=== PATIENT | female | born 1960 | race Caucasian/White ===

== ENCOUNTER 2018-12-13 10:19 | Emergency (ER) | payer MEDICAID ==
[~2018-12-13] VITALS: Ht 167.6 cm; Wt 68.2 kg
[2018-12-13] VITALS (7 sets, daily range): BP systolic 123–135; BP diastolic 63–81
[2018-12-13 10:48] LABS: BASOPHILS # (AUTO) 0.2 X10'3 (0-0.2); BASOPHILS % (AUTO) 0.9 % (0-1); EOSINOPHILS % (AUTO) 0 % (0-6); HEMATOCRIT 43.3 % (35.0-45.0); HEMOGLOBIN 14.7 g/dl (12.0-16.0); LYMPHOCYTES # (AUTO) 1.7 X10'3 (1.1-4.8); LYMPHOCYTES % (AUTO) 9.2 % (21-51); MEAN CORPUSCULAR HEMOGLOBIN 30.4 PG (27.0-31.0); MEAN CORPUSCULAR VOLUME 89.3 FL (78-98); MEAN PLATELET VOLUME 6.4 FL (7.4-10.4); MONOCYTES # (AUTO) 1.2 X10'3 (0-0.9); MONOCYTES % (AUTO) 6.6 % (2-12); NEUTROPHILS # (AUTO) 15.3 X10'3 (1.8-7.7); NEUTROPHILS % (AUTO) 83.3 % (42-75); PLATELET COUNT 351 X10'3 (140-440); RED BLOOD COUNT 4.85 X10'6 (4.20-5.60); RED CELL DISTRIBUTION WIDTH 14.1 % (11.5-14.5); WHITE BLOOD COUNT 18.4 X10'3 (4.5-11.0)
[2018-12-13 10:50] LABS: URINE HCG NEGATIVE (NEG)
[2018-12-13 10:51] LABS: CLARITY,URINE SLIGHTLY CLOUDY (Clear); COLOR,URINE YELLOW (Yellow); GLUCOSE, URINE NEGATIVE (Neg); KETONES,URINE >=80 mg/dl (Neg); LEUKOCYTE ESTERASE ,URINE NEGATIVE (Neg); NITRITES, URINE NEGATIVE (Neg); OCCULT BLOOD,URINE LARGE (Neg); PROTEIN,URINE 30 mg/dl (Neg); UROBILINOGEN,URINE 0.2 E.U/dL (0.2-1.0)
[2018-12-13 10:54] LABS: UA COLLECTION TYPE CLN CATCH MIDSTREAM
[2018-12-13 10:56] LABS: WBC,URINE 0-4 /HPF (0-4)
[2018-12-13 10:57] LABS: BACTERIA,URINE 1+ /HPF (Neg); MUCUS STRANDS MODERATE /LPF (Neg); RENAL CELLS, URINE FEW /HPF; SQUAMOUS EPITHELIAL CELL,UR MANY /LPF (FEW)
[2018-12-13 10:59] LABS: ALANINE AMINOTRANSFERASE 31 U/L (12-78); ALBUMIN 3.7 G/DL (3.4-5.0); ALKALINE PHOSPHATASE 105 IU/L (46-116); ANION GAP 7 (8-16); ASPARTATE AMINO TRANSFERASE 22 U/L (10-37); BILIRUBIN,TOTAL 0.6 MG/DL (0.1-1.0); BLOOD UREA NITROGEN 16 MG/DL (7-18); BUN/CREATININE RATIO 16.3 (6.6-38.0); CALCIUM 9.5 MG/DL (8.5-10.1); CHLORIDE 103 MMOL/L (99-107); CREATININE 0.98 MG/DL (0.40-0.90); GLUCOSE 116 MG/DL (70-104); SODIUM 137 MMOL/L (135-145); TOTAL CARBON DIOXIDE 26.9 MMOL/L (24-32); TOTAL PROTEIN 7.5 G/DL (6.4-8.2); eGFR 58 ML/MIN
[2018-12-13] MEDS ORDERED: normal saline 1000ML IV soln IVB ONE (12:10)
--- NOTE | 2018-12-13 12:32 | NUR ---
RELIEVING RN FOR LUNCH, PT IS RESTING QUIETLY ON GURNEY, RESP EVEN AND UNLABORED
[2018-12-13] MEDS ORDERED: cefotetan 2gm/isosm dext IVPB 50 ML IV ONE (12:40)
--- NOTE | 2018-12-13 12:42 | NUR ---
REPORT TO OR, THEY WILL BE HERE IN APPROX 15 MINUTES FOR PT
[2018-12-13] MEDS ORDERED: LIDOcaine 1% 30ml preserv. free vial ONE (12:50)
[2018-12-13] MEDS ORDERED: BUPIVAcaine/PF 2.5 mg/ml (0.25%) 30ml vial ONE (12:50)
[2018-12-13] MEDS ORDERED: ringers solution, lacted 1,000 ML IV SCH ×2 (12:56→13:58)
--- NOTE | 2018-12-13 13:09 | NUR ---
RN OBTAINED ANTIBIOTIC FROM PHARMACY. HANDED TO OT TECH TO TAKE WITH PT.
[2018-12-13] MEDS ORDERED: sevoflurane 250ml liquid IH ONE (13:22)
[2018-12-13] MEDS ORDERED: fentaNYL /PF 50mcg/ml 5ml ampule ONE (13:26)
[2018-12-13] MEDS ORDERED: midazolam 2 mg/2 ml injection ONE (13:26)
[2018-12-13] MEDS ORDERED: rocuronium 10mg/ml inj IV ONE (13:30)
[2018-12-13] MEDS ORDERED: propofol inj 20 ML IV ONE (13:30)
[2018-12-13] MEDS ORDERED: meperidine/PF 25mg/ml syringe IV PRN ×3 (14:00)
[2018-12-13] MEDS ORDERED: morphine 4 MG/ML inj SYRINge IV PRN ×2 (14:00)
[2018-12-13] MEDS ORDERED: ondansetron/PF 4mg/2ml inj IV PRN ×2 (14:00→14:20)
[2018-12-13] MEDS ORDERED: proCHLORperazine 10 MG/2 ml inj IV PRN (14:00)
[2018-12-13] MEDS ORDERED: neostigmine methylsulfate 1 MG/ML 10ml vial ONE (14:15)
[2018-12-13] MEDS ORDERED: glycopyrrolate 0.2mg/ml inj ONE (14:15)
[2018-12-13] MEDS ORDERED: dexamethasone sod phosphate 4mg/ml inj. ONE (14:15)
[2018-12-13] MEDS ORDERED: ondansetron/PF 4mg/2ml inj ONE (14:16)
[2018-12-13] MEDS ORDERED: ketorolac tromethamine 15mg/ml inj. IV ONE (14:20)
[2018-12-13] MEDS ORDERED: HYDROcodone/acetaminophen 5mg/325mg tablet PO PRN (14:20)
[2018-12-13] MEDS ORDERED: acetaminophen 325mg tablet PO PRN (14:25)
--- NOTE | 2018-12-13 14:35 | NUR ---
Received from OR via BED , accompanied by Anesthesiologist DR ZAFAR and report given by Anesthesiolgist. PATIENT WAKING UP, V/S WNL, NEUROVASCULAR CHECKS INTACT, 20G PIV RUE, SCD ON, 3 BANDAIDS TO LAP SIGHTS OF ABDOMEN AND STERISTRIPS CDI
--- NOTE | 2018-12-13 15:35 | NUR ---
PATIENT A&OX4, DENIES PAIN, V/S WNL, NEUROVASCULAR CHECKS INTACT, 20G PIV RUE D/C WITH NO COMPLICATIONS OBSERVED, SCD OFF, 3 BANDAIDS TO LAP SIGHTS OF ABDOMEN CDI. . I HAVE REVIEWED D/C INSTRUCTIONS WITH PATIENT AND FAMILY AND THEY HAVE VERBALIZED UNDERSTANDING. PATIENT D/C HOME WITH FAMILY TO TRANSPORT AND ALL BELONGINGS..
== END 2018-12-13 15:35 | disposition home or self-care (01) ==
LOC: ER 10:20 → PACU 13:30 → ER 15:35
DX: K35.890 Other acute appendicitis without perforation or gangrene (principal)
CPT/HCPCS: 36415; 44970; 71045; 74176; 80053; 81001; 81025; 83605; 84145; 85025; 85610; 87040; 93005; 96374; 99285; J1100; J1885; J2250; J2405; J2704; J2710; J3010; J3490; J7030; J7120; 99284; A7000